=== PATIENT | female | born 1965 | race Caucasian/White ===

== ENCOUNTER → 2017-02-22 | Outpatient (CLI) | payer OTHER ==
--- NOTE | 2017-02-22 13:25 | US ---
EXAMINATION TYPE: US transvaginal DATE OF EXAM: 02/22/2017 12:45 PM COMPARISON: NONE CLINICAL HISTORY: 51-year-old female R14.0 ABD BLOATING, N93.0 POSTCOITAL AND CONTACT BLEEDING. Irreg ular vaginal bleeding. Date of LMP: 02/17/17, lasting 1 day TECHNIQUE: Multiple transvaginal sonographic images of the pelvis are obtained. FINDINGS: Uterus: Retroverted measuring 8.2 x 4.6 x 4.8 cm. Slightly heterogeneous myometrium. Cervical naboth tyshawn cysts are present measuring up to 5 mm. Endometrial Stripe: 0.8 cm, within normal limits. Right Ovary: unable to visualize Left Ovary: 3.7 x 2.2 x 2.1 cm with follicular change. A dominant follicle with cumulus oophorus is present within measuring 2.3 cm. No evidence of adnexal abnormality. There is a small amount of free fluid within the cul-de-sac. IMPRESSION: 1. Retroverted uterus. Endometrial stripe measures 8 mm. 2. Right ovary could not be visualized. 3. Follicular change in the left ovary with a dominant follicle measuring 2.3 cm. 4. Small amount of cul-de-sac free fluid likely physiologic.
== END | disposition home or self-care (01) ==
LOC: RADUSWWP 12:20
PROVIDERS: ATTEND Pediatrics
DX: R14.0 Abdominal distension (gaseous) (principal); N93.0 Postcoital and contact bleeding; N85.4 Malposition of uterus
CPT/HCPCS: 76830

== ENCOUNTER → 2017-10-02 | Outpatient (CLI) | payer OTHER ==
--- NOTE | 2017-10-03 16:59 | MR ---
EXAMINATION TYPE: MR brain wo/w con DATE OF EXAM: 10/02/2017 COMPARISON: 09/23/2016 HISTORY: 52-year-old female follow-up white matter changes TECHNIQUE: Multiplanar, multisequence images of the brain and brainstem is performed without and wit h IV contrast, utilizing 5.5 mL intravenous Gadavist gadolinium contrast is administered intravenousl y. Demyelinating disease protocol with additional Sagittal Flair sequence performed. FINDINGS: T2 Lesions Present : Yes Approximate Number of Lesions: Approximately 6 in the right cerebral hemisphere and 4 on the left. Locations Identified : Primarily juxtacortical, a couple periventricular. No infratentorial. Size of Reference Lesion(s): 1. 6 x 4 mm in the lateral left frontal subcortical region, axial image 20. 2. Other lesions are small measuring 3 mm and smaller. Enhancing Lesion(s) Present: No T1 Hypointense Lesion(s) Present: Yes Change from Prior: Not appreciably changed. Diffusion weighted images demonstrate no evidence of a recent infarct or other diffusion abnormality. There is no worrisome extra-axial fluid collection. The ventricular system and cisternal spaces ar e normal in size and appearance. The brain volume is age appropriate. Midline structures demonstrate normal morphology. The craniocervical junction appears within normal limits. Post contrast images demonstrate no abnormal enhancement. The dural venous sinuses appear patent. Minimal trapped fluid in inferior right mastoid air cells. The visualized sinuses are clear and the g lobes are intact. IMPRESSION: 1. Minimal to mild burden of chronic T2 bright white matter change, primarily in the juxtacortical re gions. No appreciable change or enhancing lesions identified. 2. Otherwise, no intracranial abnormality seen.
== END | disposition home or self-care (01) ==
LOC: RADMRIMAIN 13:34
PROVIDERS: ATTEND Psychiatry & Neurology Neurology
DX: R90.82 White matter disease, unspecified (principal); Z88.0 Allergy status to penicillin; Z88.1 Allergy status to other antibiotic agents; Z88.8 Allergy status to other drugs, medicaments and biological substances; Z88.5 Allergy status to narcotic agent
CPT/HCPCS: 70553; A9581

== ENCOUNTER → 2017-11-26 | Outpatient (CLI) | payer MEDICAID, OTHER ==
--- NOTE | 2017-11-26 16:16 | MR ---
EXAMINATION TYPE: MR lumbar spine wo con DATE OF EXAM: 11/26/2017 COMPARISON: NONE HISTORY: LBP, lt leg pain since Jul 2017, no trauma TECHNIQUE: Multiplanar, multisequence images of the lumbar spine were acquired. FINDINGS: The lumbar spine vertebral bodies maintain height and alignment. Bone marrow signal is with in normal limits other than few T1/T2 hyperintense vertebral body hemangiomas. There is left renal pelvis and calyceal prominence that could represent pelvocaliectasis or mild hydr onephrosis. Further evaluation with renal ultrasound is recommended. L1-L2: Normal disc appearance without desiccation. No herniation, protrusion or disc bulging. No ca nal stenosis is present. Foramina are patent bilaterally. L2-L3: Normal disc appearance without desiccation. No herniation, protrusion or disc bulging. No ca nal stenosis is present. Foramina are patent bilaterally. L3-L4: There is a small broad-based disc bulge, mild facet arthropathy and mild ligamentum flavum buc griselda without neural foraminal narrowing or spinal canal stenosis. L4-L5: Right eccentric broad-based disc bulge creating mild to moderate right neural foraminal narrow ing and minimal left neural foraminal narrowing. There is also an minimal spinal canal stenosis as a result of the broad-based disc bulge, facet arthropathy and ligamentum flavum buckling. L5-S1: Small central disc herniation/extrusion with 4 mm caudal migration is identified superimposed upon a broad-based disc bulge. No resultant neural foraminal narrowing or spinal canal stenosis is se en. Lumbar segments are intact. No paraspinal masses are identified. Conus medullaris has a normal appe arance. IMPRESSION: 1. Prominent left renal pelvis and calyces that could represent pelvocaliectasis or mild hydronephros is. Further evaluation with renal ultrasound is recommended. 2. Very small central disc extrusion with 4 mm caudal migration at L5-S1. This does not result in spi nal canal stenosis or neural foraminal narrowing. 3. Degenerative disc disease at L3-L5 resulting in minimal left neural foraminal narrowing at L4-5, m ild spinal canal stenosis, and mild to moderate right neural foraminal narrowing at L4-L5.
--- NOTE | 2017-11-26 18:11 | MR ---
EXAMINATION TYPE: MR cervical spine wo/w con DATE OF EXAM: 11/26/2017 COMPARISON: 09/23/2016 HISTORY: Neck pain, headaches x 15 years TECHNIQUE: Multiplanar, multisequence images of the cervical spine were acquired utilizing 5.5 mL intravenous Ga davist gadolinium contrast. Diffusion weighted imaging was performed. C2-C3: No evidence for degenerative disc disease. No disc bulge/herniation or protrusion. No Canal stenosis. Foramina are patent bilaterally. C3-C4: No evidence for degenerative disc disease. No disc bulge/herniation or protrusion. No Canal stenosis. Foramina are patent bilaterally. C4-C5: No disc herniation, canal stenosis, or foraminal encroachment. C5-C6: broad-based posterior disc protrusion effacing anterior thecal sac with mild uncovertebral fac et degenerative changes bilaterally causing moderate left and mild to moderate right-sided neural for aminal narrowing. No significant change from prior. Stable mild central stenosis. C6-C7: broad-based posterior disc protrusion effacing anterior thecal sac and causing mild bilateral neural foraminal narrowing. No significant change from prior study is seen. C7-T1: No evidence for degenerative disc disease. No disc bulge/herniation or protrusion. No Canal stenosis. Foramina are patent bilaterally. Cervical segments are intact. There is normal alignment. Cervical spinal cord is of normal signal. Craniovertebral junction relationships are within normal limits. Loss of the normal cervical lordos is. IMPRESSION: Multilevel degenerative changes in cervical spine at C5-C6 and C6-C7 level redemonstrated without sig nificant change from prior. Disc protrusions are stable.
== END | disposition home or self-care (01) ==
LOC: RADMRIMAIN 15:12
PROVIDERS: ATTEND Nurse Practitioner Acute Care
DX: M48.061 Spinal stenosis, lumbar region without neurogenic claudication (principal); M99.73 Connective tissue and disc stenosis of intervertebral foramina of lumbar region; M51.27 Other intervertebral disc displacement, lumbosacral region; M51.36 Other intervertebral disc degeneration, lumbar region; M47.812 Spondylosis without myelopathy or radiculopathy, cervical region; M50.20 Other cervical disc displacement, unspecified cervical region; Z88.0 Allergy status to penicillin; Z88.1 Allergy status to other antibiotic agents; Z88.2 Allergy status to sulfonamides; Z88.5 Allergy status to narcotic agent
CPT/HCPCS: 72148; 72156; A9581

== ENCOUNTER → 2018-01-04 | Outpatient (CLI) | payer MEDICAID ==
--- NOTE | 2018-01-06 10:23 | MM ---
Reason for exam: screening (asymptomatic). Last mammogram was performed 1 year and 5 months ago. History: Family history of breast cancer in maternal grandmother and breast cancer in maternal aunt. US discontinued breast bx LT of the left breast, August 01, 2015. Physical Findings: A clinical breast exam by your physician is recommended on an annual basis and results should be correlated with mammographic findings. MG 3D Screening Mammo W/Cad Bilateral CC and MLO view(s) were taken. Prior study comparison: August 04, 2016, bilateral MG 3d screening mammo w/cad. July 01, 2015, bilateral MG screening mammo w CAD. The breast tissue is extremely dense which could obscure a lesion on mammography. Finding: There are typically benign round, grouped/clustered calcifications in both breasts. Focal asymmetry 10mm posterior upper outer quadrant. ASSESSMENT: Incomplete: need additional imaging evaluation, BI-RAD 0 RECOMMENDATION: Special view mammogram and ultrasound of the left breast. [facility] will attempt to contact patient to return for supplemental views and ultrasound.
== END | disposition home or self-care (01) ==
LOC: RADMAMWWP 07:28
PROVIDERS: ATTEND Pediatrics
DX: Z12.31 Encounter for screening mammogram for malignant neoplasm of breast (principal)
CPT/HCPCS: 77063; 77067

== ENCOUNTER → 2018-01-18 | Outpatient (CLI) | payer MEDICAID ==
--- NOTE | 2018-01-19 08:05 | MM ---
Reason for exam: additional evaluation requested from abnormal screening. Last mammogram was performed less than 1 month ago. History: Family history of breast cancer in maternal grandmother and breast cancer in maternal aunt. US discontinued breast bx LT of the left breast, August 01, 2015. Took hormonal contraceptives beginning at age 15. Physical Findings: Nurse did not find any significant physical abnormalities on exam. MG 3D Work Up W/Cad LT Spot compression CC, spot compression MLO, and LM view(s) were taken of the left breast. Prior study comparison: January 04, 2018, bilateral MG 3d screening mammo w/cad. August 04, 2016, bilateral MG 3d screening mammo w/cad. The breast tissue is extremely dense which could obscure a lesion on mammography. Finding: There is an equal density (isodense), circumscribed round mass in the axillary tail position of the left breast consistent with probable lymph node. These results were verbally communicated with the patient and result sheet given to the patient on 01/18/18. ASSESSMENT: Probably benign, BI-RAD 3 RECOMMENDATION: Follow-up diagnostic mammogram of the left breast in 6 months.
== END | disposition home or self-care (01) ==
LOC: RADMAMWWP 14:17
PROVIDERS: ATTEND Pediatrics
DX: R92.8 Other abnormal and inconclusive findings on diagnostic imaging of breast (principal)
CPT/HCPCS: 77065; G0279

== ENCOUNTER → 2018-04-27 | Outpatient (CLI) | payer MEDICAID ==
[2018-04-27 13:22] LABS: Basophils % (A) 1 %; Eosinophils # (A) 0.1 k/uL (0-0.7); Eosinophils % (A) 3 %; HCT 41.9 % (34.0-46.0); Lymphocytes # (A) 1.1 k/uL (1.0-4.8); Lymphocytes % (A) 38 %; MCH 30.9 pg (25.0-35.0); MCHC 33.4 g/dL (31.0-37.0); MCV 92.5 fL (80.0-100.0); Mean Platelet Volume 7.6; Monocytes # (A) 0.2 k/uL (0-1.0); Monocytes % (A) 6 %; Neutrophils # (A) 1.5 k/uL (1.3-7.7); Neutrophils % (A) 49 %; Platelet Count 200 k/uL (150-450); RBC 4.53 m/uL (3.80-5.40); RDW 12.5 % (11.5-15.5)
[2018-04-27 13:43] LABS: ALT 26 U/L (9-52); AST 19 U/L (14-36); Albumin 4.2 g/dL (3.5-5.0); Alkaline Phosphatase 64 U/L (38-126); Anion Gap 10 mmol/L; Blood Urea Nitrogen 20 mg/dL (7-17); Calcium 9.7 mg/dL (8.4-10.2); Carbon Dioxide 31 mmol/L (22-30); Chloride 98 mmol/L (98-107); Glucose 110 mg/dL (74-99); Potassium 4.2 mmol/L (3.5-5.1); Sodium 139 mmol/L (137-145); Total Bilirubin 0.6 mg/dL (0.2-1.3); Total Protein 6.7 g/dL (6.3-8.2)
== END | disposition home or self-care (01) ==
LOC: LABWHC1 12:16
PROVIDERS: ATTEND Nurse Practitioner Acute Care
DX: I49.9 Cardiac arrhythmia, unspecified (principal); E55.9 Vitamin D deficiency, unspecified; Z51.81 Encounter for therapeutic drug level monitoring; G35 Multiple sclerosis
CPT/HCPCS: 36415; 80053; 82306; 85025; 93005

== ENCOUNTER → 2018-08-01 | Outpatient (CLI) | payer MEDICAID ==
--- NOTE | 2018-08-02 09:57 | MM ---
Reason for exam: follow-up at short interval from prior study. Last mammogram was performed 6 months ago. History: Patient is postmenopausal. Family history of breast cancer in maternal grandmother and breast cancer in maternal aunt. US discontinued breast bx LT of the left breast, August 01, 2015. Took hormonal contraceptives beginning at age 15. Physical Findings: Nurse Summary: 1cm nodule in the left breast at 1 o'clock (nurse cinthia). MG 3D Diag Mammo W/Cad LT CC, MLO, and LM view(s) were taken of the left breast. Prior study comparison: January 18, 2018, left breast MG 3d work up w/cad LT. January 04, 2018, bilateral MG 3d screening mammo w/cad. The breast tissue is heterogeneously dense. This may lower the sensitivity of mammography. Stable benign calcifications in the left breast. No significant new findings when compared with previous films. These results were verbally communicated with the patient and result sheet given to the patient on 08/01/18. ASSESSMENT: Incomplete: need additional imaging evaluation, BI-RAD 0 RECOMMENDATION: Ultrasound of the left breast.
--- NOTE | 2018-08-02 09:59 | USB ---
Reason for exam: additional evaluation requested from abnormal screening. History: Patient is postmenopausal. Family history of breast cancer in maternal grandmother and breast cancer in maternal aunt. US discontinued breast bx LT of the left breast, August 01, 2015. Took hormonal contraceptives beginning at age 15. US Breast Limited LT Left limited breast ultrasound including focal area of concern, retroareolar and axilla demonstrates a 6 x 2 x 5mm oval, solid, hypoechoic lesion at 2 o'clock, a 6 x 3 x 4mm oval, solid, hypoechoic lesion at 2 o'clock and a 5 x 3 x 6mm oval, solid, hypoechoic, vascular lesion at the posterior nipple. Multiple cysts visualized. These results were verbally communicated with the patient and result sheet given to the patient on 08/01/18. ASSESSMENT: Suspicious, BI-RAD 4 RECOMMENDATION: Ultrasound core biopsy of the left breast. Called Dr. Artis with mammographic findings and has scheduled an appointment for the patient for 08/15/18 at 3:[address] Locke. Biopsy scheduled for 08/16/18 at 2:20. PRELIMINARY REPORT CALLED AND FAXED TO DR. LOCKE ON 08/02/18.
== END | disposition home or self-care (01) ==
LOC: RADMAMWWP 15:39
PROVIDERS: ATTEND Pediatrics
DX: R92.8 Other abnormal and inconclusive findings on diagnostic imaging of breast (principal)
CPT/HCPCS: 77061; 77065

== ENCOUNTER → 2018-08-15 | Outpatient (CLI) | payer MEDICAID ==
[2018-08-15 16:01] VITALS: BP 130/77; PULSE 57; RESP 14; TEMP 96.8; BMI 21.1
--- NOTE | 2018-08-15 16:16 | P.GSHP ---
History of Present Illness H&P Date: 08/15/18 The patient had a bilateral mammogram in January, at that time she was told she should have a repeat left breast mammogram in 6 months time. No findings of concern were noted in the right breast. The patient states she had some mastitis about one month ago and since has noted some fullness in the upper outer quadrant area of the left breast. She was diagnosed with mastitis and treated with antibiotic therapy. The mastitis was present only in the left breast. The patient states she does have some fullness in that area of the breast, there is some tenderness with palpation to that area. The patient has no nipple discharge of concern. The patient has no trauma to her breast. Patient has not had anything like this in the past. The patient drinks several cups of either tea or coffee per day. She drinks very little pop. She does not smoke although she is exposed to secondhand smoke. The patient eats chocolate occasionally. The patient has not had a menstrual cycle in over a year. Family History: 1. maternal aunt: breast post-menopausal 2. maternal grandmother: breast pre-menopausal 3. maternal grandfather: bone 4. maternal second cousin: lung cancer, smoker Hormonal history: Menarche:13 : 2, 2 children first and 21, breast fed both menopause: 52 BCP: 20 years hormones: none Past surgical history: 1. Tubal ligation 2. Hernia 3. Hip surgery 4. Tonsils and adenoids Past Medical History: 1. Multiple sclerosis: vision problems, memory problems, weekness in her legs 2. 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 Genitourinary: Reports hematuria, Denies dysuria - Menstruation Menstruation: Reports postmenopausal - Musculoskeletal Comment: Arthritis in her neck, multiple sclerosis Musculoskeletal: Reports as per HPI, Reports muscle weakness, Reports myalgias - Integumentary Comment: spot on her stomach Integumentary: Reports rash, Denies pruritus - Neurological Comment: Multiple sclerosis Neurological: Reports visual changes - Psychiatric Psychiatric: Denies anxiety, Denies depression - Endocrine Endocrine: Reports fatigue, Denies weight change - Hematologic/Lymphatic Comment: none - Allergic/Immunologic Comment: Trimethoprim, meperidin, penicillin, sulfamethizole Allergic/Immunologic: Reports seasonal allergies Past Medical History Past Medical History: GERD/Reflux, Musculoskeletal Disorder, Skin Disorder, Sleep Apnea/CPAP/BIPAP Additional Past Medical History / Comment(s): Narcolepsy, JOHNNIE-tolerates CPAP for a couple hours a nite, cervical herniation C5-C6, L leg Ballard's cyst, bilateral tinnitis, head concussion r/t injury, occasional palpitations, seasonal allergies, Lyme's disease and on ABX 3 months then tested again for Lyme's and it was negative, chronic anemia, eczema occasionally, multiple sclerosis (dx Oct 2017) History of Any Multi-Drug Resistant Organisms: None Reported Past Surgical History: Adenoidectomy, Hernia Repair, Orthopedic Surgery, Tonsillectomy, Tubal Ligation Additional Past Surgical History / Comment(s): R inguinal hernia repair, 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 Additional Past Anesthesia/Blood Transfusion Reaction / Comment(s): Pt states she aspirated during one surgery, pt given demerol (listed as an allergy causing aspiration) Past Psychological History: No Psychological Hx Reported Additional Psychological History / Comment(s): Pt states she lives with alot of stress. 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 She is independent. She lives with her spouse and adult son who has [facility] dx and is very functional. Smoking Status: Current some day smoker Past Alcohol Use History: None Reported Additional Past Alcohol Use History / Comment(s): Pt states she has smoked on and off since about 1983. Sometimes she quit for many yrs. Past Drug Use History: None Reported, Marijuana Additional Drug Use History / Comment(s): medical marijuana - Past Family History Father Family Medical History: Diabetes Mellitus, Hypertension Additional Family Medical History / Comment(s): Father has alcoholism. Mother Family Medical History: AFIB, Fibromyalgia Medications and Allergies Home Medications Medication Instructions Recorded Confirmed Type ALPRAZolam [Xanax] 0.5 mg PO DAILY PRN 08/04/18 08/04/18 History [place]-3 Fatty Acids/Fish Oil [Fish 1 each PO DAILY 08/15/18 08/15/18 History Oil 1,000 mg Softgel] Vitamin E 1,000 unit PO DAILY 08/15/18 08/15/18 History Allergies Allergy/AdvReac Type Severity Reaction Status Date / Time trimethoprim [From Bactrim] Allergy Severe Anaphylaxis Verified 08/15/18 15:49 meperidine HCl [From Demerol] Allergy "aspiration Verified 08/15/18 15:49 " Penicillins Allergy Rash/Hives Verified 08/15/18 15:49 sulfamethoxazole Allergy Anaphylaxis Verified 08/15/18 15:49 [From Bactrim] Surgical - Exam BMI 21.1 BP:130/77 T: 96.8 Pulse: 57 R: 14 - General well developed, well nourished, no distress - Eyes normal ocular movement - ENT no hearing loss, no congestion - Neck no masses, trachea midline - Respiratory normal respiratory effort, clear to auscultation - Cardiovascular Rhythm: regular Heart Sounds: normal: S1, S2 - Abdomen an area of skin change about 1 by 1 cm in size following with credit reporter anterior abdominal wall just below the rib cage Abdomen: soft, non tender, no guarding, no rigid, no rebound - Integumentary Skin change as noted 1 x 1 cm area of erythema just below the rib cage on the right anterior abdominal wall patient is following with dermatology - Neurologic no disoriented, no combative - Musculoskeletal normal gait, normal posture - Psychiatric oriented to time, oriented to person, oriented to place, speech is normal, memory intact Breast examination: Right breast: Multi-positional exam no dominant masses or nodules of concern, right nipple is inverted but does come out with the examination Right axilla: No adenopathy of concern Left breast: Multi-positional exam no dominant masses or nodules of concern however in the upper outer quadrant area 2:00 there is some increased fullness Left axilla: No adenopathy of concern Results Mammogram and ultrasound reports reviewed Assessment and Plan Assessment: Impression: 1. Redo graphic abnormality and palpable change left breast at 2:00 2. Multiple sclerosis 3. Headaches related to neck degenerative disc disease 4. Microscopic hematuria being followed by primary care doctor 5. Skin change abdominal wall being followed by dermatology Plan: 1. Ultrasound-guided core biopsy radiographic area of concern in the left breast this appears to correlate with palpable increased nodularity in the left breast 2. Medical management of medical conditions 3. Patient to follow-up after ultrasound core biopsy for further recommendation 4. follow up 1 week after biopsy CC: Dr. Gonzalez ([place])
== END ==
LOC: WWCWWP 14:40
PROVIDERS: ATTEND Surgery
DX: Z53.9 Procedure and treatment not carried out, unspecified reason (principal)

== ENCOUNTER → 2018-08-22 | Day surgery (SDC) | payer MEDICAID ==
[2018-08-22 10:28] VITALS: RESP 12
[2018-08-22 12:35] VITALS: BP 132/85; PULSE 69; TEMP 98.6
--- NOTE | 2018-08-22 16:42 | USB ---
EXAMINATION TYPE: US biopsy breast VAD LT, MG postbiopsy diagnostic mammo LT wo CAD DATE OF EXAM: 08/22/2018 CLINICAL HISTORY: 53-year-old female R92.8 palpable finding and Abn mammo. TECHNIQUE: Ultrasound guided core biopsy of the left breast. COMPARISON: 01/04/2018 and 08/01/2018 FINDINGS: The procedure of ultrasound guided core biopsy was explained to the patient. Benefits, alternatives, and risks were discussed. An informed consent was then obtained. The patient was placed in supine positioning for imaging and for the procedure. The 2 palpable areas at the 2:00 position zone B/C were identified. Because these were within 1 cm of each other, they were targeted for sampling at once. Circumscribed hypoechoic lesion behind the nipple is also redemonstrated. Some images suggest some posterior through transmission. Internal echoes may be secondary to debris accumulation. Vascularity could not be demonstrated as questioned previously. Findings were discussed with the patient and decision is made to forego biopsy and perform a 6 month follow-up of this area. The overlying skin was prepped and draped in usual sterile fashion. Lidocaine buffered with bicarbonate was used as anesthetic into the skin and subcutaneous tissue up to area of concern in the 2:00 left breast. Under ultrasound guidance, a 13-gauge vacuum assisted Mammotome Elite biopsy gun device was used to obtain 5 core samples. Following this, a ribbon clip was left in lesion. The patient tolerated the procedure well without any immediate complication. The patient was kept in the radiology department for short stay after the procedure and then discharged home in stable condition. Post procedure mammogram shows ribbon clip at the site of the mammographic finding. IMPRESSION: Successful, uncomplicated ultrasound guided core biopsy of 2 palpable areas in the 2:00 posterior left breast located within 1 cm of each other. Full pathology results to follow. RECOMMENDATION: 1. Follow-up cytology results of the 2 adjacent palpable 2:00 lesions. Note that these were sampled together due to close proximity. 2. Six-month follow-up ultrasound of the subareolar finding which may represent a complicated cyst rather than a solid lesion. Pathology Results: Benign BREAST, LEFT, 2:00, ULTRASOUND GUIDED CORE BIOPSY: Fibrocystic changes including dense stromal fibrosis, adenosis and mild chronic inflammation. Focal pseudoangiomatous stromal hyperplasia (PASH). Recommendation Follow up ultrasound of the left breast in 6 months. POWERD
== END ==
LOC: RADUSWWP 09:59
PROVIDERS: ATTEND Surgery
DX: N60.32 Fibrosclerosis of left breast (principal); N60.22 Fibroadenosis of left breast; N62 Hypertrophy of breast; Z88.1 Allergy status to other antibiotic agents; Z88.5 Allergy status to narcotic agent; Z88.0 Allergy status to penicillin; Z88.2 Allergy status to sulfonamides
CPT/HCPCS: 88305; 77065; 19083; A4648; J2001

== ENCOUNTER → 2018-09-01 | Outpatient (CLI) | payer MEDICAID ==
[2018-09-01 09:06] VITALS: BP 127/79; PULSE 57; RESP 16; TEMP 96.2; BMI 21.4
--- NOTE | 2018-09-01 09:30 | P.PN ---
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 The pathology for this was PAS H. The patient hasn't noticed some increased nodularity in the area since the biopsy and some ecchymosis. Otherwise she is not complaining of any pain or problems. No fever or chills and no evidence of any infection. Objective - Vital Signs Vital signs: Vital Signs Temp 96.2 F L 09/01/18 09:01 Pulse 57 L 09/01/18 09:01 Resp 16 09/01/18 09:01 BP 127/79 09/01/18 09:01 Pulse Ox 98 09/01/18 09:01 Intake & Output 08/31/18 09/01/18 09/01/18 18:59 06:59 18:59 Weight 56.699 kg - Exam BMI 21.5 - Constitutional General appearance: Present: average body habitus - EENT Eyes: Present: EOMI ENT: Present: hearing grossly normal - Neck Neck: Present: normal ROM - Respiratory Respiratory: bilateral: CTA - Cardiovascular Rhythm: regular Heart sounds: normal: S1, S2 - Gastrointestinal General gastrointestinal: Present: soft - Integumentary Integumentary Comment(s): left breast: Ecchymosis in the upper outer quadrant area near site of prior core biopsy, small area of nodularity believed to be consistent with hematoma Left axilla: No adenopathy of concern Right breast: Examination was not repeated although on visual inspection she does have an inverted nipple which is chronic Assessment and Plan Assessment: Impression: 1. Past left breast upper outer quadrant area 2. Radiographically the patient has a subareolar finding for which six-month follow-up is recommended felt to represent 8 complicated cyst rather than a solid lesion Plan: 1. The patient is going to have repeat physician exam in 3 months time to follow the presumed area of hematoma in the left breast this changes she will see us sooner 2. Repeat ultrasound and mammogram of the left breast in 6 months time with physician exam at that time Cc: Dr. Artis ([place])
== END | disposition home or self-care (01) ==
LOC: WWCWWP 08:48
PROVIDERS: ATTEND Surgery
DX: Z53.9 Procedure and treatment not carried out, unspecified reason (principal)

== ENCOUNTER → 2018-10-03 | Outpatient (CLI) | payer MEDICAID ==
--- NOTE | 2018-10-04 05:32 | MR ---
EXAMINATION TYPE: MR brain wo con DATE OF EXAM: 10/03/2018 COMPARISON: Prior MRI brain October 02, 2017. HISTORY: MS TECHNIQUE: Multiplanar, multisequence images of the brain and brainstem is performed without IV contrast, Demyel inating disease protocol with additional Sagittal Flair sequence performed. IV contrast not given as ordered as patient refused. FINDINGS: T2 Lesions Present : Yes Approximate Number of Lesions: Approximately 5-10 scattered small lesions Locations Identified : Scattered Size of Reference Lesion(s): 1. 6 x 4 x 5 mm on axial image 18 and sagittal image 8 posterior left frontal superficial lesion at l evel of pacheco radiata stable. Enhancing Lesion(s) Present: N/A T1 Hypointense Lesion(s) Present: Yes Change from Prior: Stable Diffusion weighted images demonstrate no evidence of a recent infarct or other diffusion abnormality. There is no worrisome extra-axial fluid collection. The ventricular system and cisternal spaces ar e normal in size and appearance. The brain volume is age appropriate. Midline structures demonstrate normal morphology. The craniocervical junction appears within normal limits. Post contrast images demonstrate no abnormal enhancement. The dural venous sinuses appear pa tent. The visualized sinuses are clear and the globes are intact. IMPRESSION: Mild to minimal nonspecific white matter changes may be on basis of patient's known multi ple sclerosis redemonstrated and is felt stable.
== END | disposition home or self-care (01) ==
LOC: RADMRIMAIN 13:00
PROVIDERS: ATTEND Psychiatry & Neurology Neurology
DX: G35 Multiple sclerosis (principal); Z88.5 Allergy status to narcotic agent; Z88.0 Allergy status to penicillin; Z88.2 Allergy status to sulfonamides; Z88.8 Allergy status to other drugs, medicaments and biological substances
CPT/HCPCS: 70551

== ENCOUNTER → 2018-12-30 | Outpatient (CLI) | payer BC ==
[2018-12-30 11:55] VITALS: BP 139/84; PULSE 57; RESP 16; TEMP 97.5; BMI 21.4
--- NOTE | 2018-12-30 12:19 | P.PN ---
Subjective Progress Note Date: 12/30/18 Principal diagnosis: follow up on nodularity of the left breast after core biopsy Alea is a 53-year-old white female who is status post ultrasound-guided core biopsy of an area of concern in the left breast on [id number]. Postprocedure the patient noticed some increased nodularity in the area of the biopsy with some mild ecchymosis. 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 The patient presents today for reevaluation of the area. She states she no longer feels nodularity in this area. The patient has no complaints of pain, nipple discharge, or new rashes or areas of concern in either breast. She has not had repeat radiographs perform this will be done in approximately 3 months. Jenifer risk: 5 year: 0.9% lifetime risk: 7.5% Objective - Vital Signs Vital signs: Vital Signs Temp 97.5 F L 12/30/18 11:52 Pulse 57 L 12/30/18 11:52 Resp 16 12/30/18 11:52 BP 139/84 12/30/18 11:52 Pulse Ox 100 12/30/18 11:52 Intake & Output 12/29/18 12/30/18 12/30/18 18:59 06:59 18:59 Weight 56.699 kg - Exam BMI 21.5 - Constitutional General appearance: Present: thin - EENT Eyes: Present: EOMI ENT: Present: hearing grossly normal - Neck Neck: Present: normal ROM - Respiratory Respiratory: bilateral: CTA - Cardiovascular Rhythm: regular Heart sounds: normal: S1, S2 - Gastrointestinal General gastrointestinal: Present: soft - Integumentary Integumentary: Present: normal turgor - Musculoskeletal Musculoskeletal: Present: gait normal - Psychiatric Psychiatric: Present: A&O x's 3, appropriate affect, intact judgment & insight - Additional findings Additional findings: Breast examination: Right breast: multipositional exam fibrocystic changes, nipple inverted but comes back out again patient states it is been chronically like fat Right axilla: No adenopathy of concern Left breast: Multi-positional exam fibrocystic changes, no ecchymosis and no hematoma or nodularity of concern Left axilla: No adenopathy of concern Assessment and Plan Assessment: Impression: 1. Bilateral fibrocystic breast changes 2. Inverted right nipple which has been chronic and comes out with manipulation 3. pseudoangiomatous hyperplasia of the breast 4. Family history of breast cancer (maternal aunt and grandmother with breast cancer) 5. Risk of breast cancer the Jenifer model low Plan: 1. Mammogram of the left side in 3 months 2. Follow-up examination in 3 months CC: Dr. Artis ([place])
== END | disposition home or self-care (01) ==
LOC: WWCWWP 11:46
PROVIDERS: ATTEND Surgery
DX: Z53.9 Procedure and treatment not carried out, unspecified reason (principal)

== ENCOUNTER → 2019-01-06 | Outpatient (CLI) | payer BC ==
[2019-01-06 15:12] LABS: Creatine Kinase MB 0.6 ng/mL (0.0-2.4); Troponin I <0.012 ng/mL (0.000-0.034)
== END ==
LOC: LABWHC1 14:12
PROVIDERS: ATTEND Physician Assistant
DX: R07.9 Chest pain, unspecified (principal)
CPT/HCPCS: 36415; 82550; 82553; 84484

== ENCOUNTER → 2019-04-26 | Outpatient (CLI) | payer BC ==
--- NOTE | 2019-05-01 14:08 | MM ---
Reason for exam: screening (asymptomatic). Last mammogram was performed 8 months ago. History: Patient is postmenopausal. Family history of breast cancer in maternal grandmother and breast cancer in maternal aunt. Benign US biopsy breast VAD LT of the left breast, August 22, 2018. US discontinued breast bx LT of the left breast, August 01, 2015. Took hormonal contraceptives beginning at age 15. Physical Findings: A clinical breast exam by your physician is recommended on an annual basis and results should be correlated with mammographic findings. MG 3D Screening Mammo W/Cad Bilateral CC and MLO view(s) were taken. Prior study comparison: August 22, 2018, left breast MG diagnostic mammo LT wo CAD. August 01, 2018, left breast MG 3d diag mammo w/cad LT. January 04, 2018, bilateral MG 3d screening mammo w/cad. August 04, 2016, bilateral MG 3d screening mammo w/cad. The breast tissue is heterogeneously dense. This may lower the sensitivity of mammography. Previous mammotome biopsy in the left breast. No significant changes when compared with prior studies. ASSESSMENT: Negative, BI-RAD 1 RECOMMENDATION: Routine screening mammogram of both breasts in 1 year. Patient should continue monthly self breast exams. A negative report should not preclude additional follow up of suspicious palpable abnormalities.
== END | disposition home or self-care (01) ==
LOC: RADMAMWWP 13:43
PROVIDERS: ATTEND Pediatrics
DX: Z12.31 Encounter for screening mammogram for malignant neoplasm of breast (principal)
CPT/HCPCS: 77063; 77067

== ENCOUNTER → 2019-12-22 | Outpatient (CLI) | payer BC, MEDICAID ==
[2019-12-22 13:43] LABS: Basophils # (A) 0.1 k/uL (0-0.2); Basophils % (A) 1 %; Eosinophils # (A) 0.2 k/uL (0-0.7); Eosinophils % (A) 3 %; HCT 46.3 % (34.0-46.0); HGB 14.6 gm/dL (11.4-16.0); Lymphocytes # (A) 1.8 k/uL (1.0-4.8); Lymphocytes % (A) 37 %; MCH 29.9 pg (25.0-35.0); MCHC 31.5 g/dL (31.0-37.0); MCV 94.9 fL (80.0-100.0); Mean Platelet Volume 7.9; Monocytes # (A) 0.3 k/uL (0-1.0); Monocytes % (A) 6 %; Neutrophils # (A) 2.5 k/uL (1.3-7.7); Neutrophils % (A) 51 %; Platelet Count 216 k/uL (150-450); RBC 4.88 m/uL (3.80-5.40); RDW 12.5 % (11.5-15.5); WBC 4.9 k/uL (3.8-10.6)
[2019-12-22 18:46] LABS: ALT 20 U/L (8-44); AST 20 U/L (13-35); African American GFR (CKD) 98.2 (60.0-200.0); Albumin/Globulin Ratio 2.35 (1.60-3.17); Alkaline Phosphatase 74 U/L (41-126); BUN/Creat Ratio 23.75 Ratio (12.00-20.00); Calcium 9.6 mg/dL (8.7-10.3); Carbon Dioxide 35.2 mmol/L (21.6-31.8); Chloride 103 mmol/L (96-109); GGT <15 U/L (0-38); Glucose 83 mg/dL (70-110); Magnesium 1.9 mg/dL (1.5-2.4); Non-African American GFR(CKD) 84.8 (60.0-200.0); Potassium 4.5 mmol/L (3.5-5.5); Sodium 142 mmol/L (135-145); Total Bilirubin 0.6 mg/dL (0.3-1.2); Total Protein 6.7 g/dL (6.2-8.2)
== END | disposition home or self-care (01) ==
LOC: LABWHC1 12:38
PROVIDERS: ATTEND Nurse Practitioner Acute Care
DX: G35 Multiple sclerosis (principal); I49.9 Cardiac arrhythmia, unspecified; E55.9 Vitamin D deficiency, unspecified; R53.82 Chronic fatigue, unspecified; Z51.81 Encounter for therapeutic drug level monitoring
CPT/HCPCS: 36415; 80053; 82306; 82607; 82977; 83735; 84207; 84425; 85025; 86787; 93005

== ENCOUNTER → 2024-06-22 | Outpatient (CLI) | payer BC | END | disposition home or self-care (01) | LOC: LABPRL 14:16 | PROVIDERS: ATTEND Nurse Practitioner Family | DX: R30.0 Dysuria (principal) | CPT/HCPCS: 87086 ==